=== PATIENT | male | born 1970 | race Caucasian/White ===

== ENCOUNTER 2017-03-14 13:17 | Emergency (ER) | payer OTHER ==
[2017-03-14] MEDS ORDERED: ONDANSETRON 4 MG/2 ML VIAL ONE (13:25)
[2017-03-14] MEDS ORDERED: ONDANSETRON 4 MG/2 ML VIAL IVP ONE (13:40)
--- NOTE | 2017-03-14 13:41 | CPEKG ---
Heart Rate: 64 RR Interval: 938 P-R Interval: 156 QRSD Interval: 110 QT Interval: 468 QTC Interval: 483 P Reyno: 58 QRS Reyno: 62 T Wave Reyno: 41 EKG Severity - ABNORMAL ECG - EKG Impression: SINUS RHYTHM EKG Impression: NONSPECIFIC INTRAVENTRICULAR CONDUCTION DELAY Electronically Signed By: Fletcher Horan 14-Mar-2017 15:06:46
--- NOTE | 2017-03-14 13:44 | EDPHY ---
H & P Time Seen by Provider: 03/14/17 13:35 HPI/ROS: Chief complaint. Bilateral arm numbness HPI. 46-year-old male here with bilateral arm numbness and tingling that began when he felt like he was going to pass out. He was feeling very lightheaded and stressed and nauseated. This symptoms began a couple hours ago. He had altered sensation to his arms but no weakness. He vomited 4 times and now feels better. He had no chest discomfort or trouble breathing. He had some neck and back pain are at the onset but no symptoms of this now. He has had similar symptoms previously with 2 episodes last fall. He had cardiology workup which was normal. He had a vasectomy yesterday. Took a Vicodin last night. He has increased stress and there was emotional upset and stressed around the onset of this episode today. ROS Constitutional. Generalized weakness but no fever Eyes. no problems with vision ENT. no sore throat, no nasal drainage Cardiovascular. no chest pain Respiratory. no shortness of breath, no cough Abdominal. No abdominal pain but vomiting . no problems urinating MS. Neck and upper back pain at the onset but not now Skin. no rash Lymph. no swollen glands Neuro. Lightheaded and near syncope. Bilateral arm tingling. Past Medical/Surgical History: Near syncopal episodes and anxiety/depression. Vasectomy yesterday Family history father had an [place] at about this patient's age Social History: , nonsmoker, no alcohol Physical Exam: General Appearance: Alert well-developed male moderate distress vital signs are stable Eyes: Pupils equal and round no pallor or injection. ENT, Mouth: Mucous membranes are moist. Respiratory: There are no retractions, lungs are clear to auscultation. Cardiovascular: Regular rate and rhythm. Gastrointestinal: Abdomen is soft and nontender, no masses, bowel sounds normal. Neurological: Awake and alert, sensory and motor exams grossly normal. Skin: Warm and dry, no rashes. Musculoskeletal: Neck is supple nontender. Extremities symmetrical, full range of motion. Psychiatric: Patient is oriented X 3, there is no agitation. Constitutional: Initial Vital Signs Temperature (C) 36.5 C 03/14/17 13:17 Heart Rate 68 03/14/17 13:17 Respiratory Rate 16 03/14/17 13:17 Blood Pressure 128/59 H 03/14/17 13:17 O2 Sat (%) 98 03/14/17 13:17 O2 Delivery Mode Room Air Allergies/Adverse Reactions: No Known Allergies Allergy (Verified 03/14/17 13:43) Home Medications: Medication Instructions Recorded LORazepam 03/14/17 MIRTAZAPINE 03/14/17 Medical Decision Making - Diagnostics EKG Interpretation: EKG interpreted by me shows normal sinus rhythm with normal interval and axis. Mild interventricular conduction delay with QRS D of 110. No ST elevation or depression. No arrhythmia. The rate is 64 Procedures: IV normal saline, monitor. Zofran for nausea. IV lorazepam ED Course/Re-evaluation: Re-evaluation 3:00 p.m.. Patient patient is feeling better. We reviewed labs. He has had 1 L of fluid but no urge to urinate. We agreed that we will give him and 1 more L of saline and repeat repeat labs in 1 hour. Re-evaluation at 5:35 p.m.. Patient is stable. He tells me he feels back to normal. He is offered admission but he feels well to be discharged. We will ambulate the patient prior to discharge. His repeat troponin is normal. His electrolyte abnormalities have normalized. Patient has no complaints now. The patient and family and I discussed laboratory results, treatment plan including criteria for return importance of follow-up and further evaluation. They expressed understanding and agreement 6:10 p.m.-- Patient ambulates without difficulty. Again he feels well without symptoms. Again he is offered admission but declines. Differential Diagnosis: I think this was likely stress and panic attack. I considered acute coronary syndrome, electrolyte abnormalities, cervical radiculopathy, CVA - Data Points Laboratory Results: Laboratory Results 03/14/17 16:05 03/14/17 16:05 03/14/17 03/14/17 03/14/17 16:05 16:05 13:15 WBC 14.14 10^3/uL H 10^3/uL (3.80-9.50) RBC 4.25 10^6/uL L 10^6/uL (4.40-6.38) Hgb 13.4 g/dL L g/dL (13.7-17.5) Hct 38.5 % L % (40.0-51.0) MCV 90.6 fL fL (81.5-99.8) MCH 31.5 pg pg (27.9-34.1) MCHC 34.8 g/dL g/dL (32.4-36.7) RDW 12.4 % % (11.5-15.2) Plt Count 251 10^3/uL D 10^3/uL (150-400) MPV 9.7 fL fL (8.7-11.7) Neut % (Auto) 86.6 % H % (39.3-74.2) Lymph % (Auto) 8.0 % L % (15.0-45.0) [place] % (Auto) 4.5 % % (4.5-13.0) Eos % (Auto) 0.1 % L % (0.6-7.6) Baso % (Auto) 0.1 % L % (0.3-1.7) Nucleat RBC Rel Count 0.0 % % (0.0-0.2) Absolute Neuts (auto) 12.23 10^3/uL H 10^3/uL (1.70-6.50) Absolute Lymphs (auto) 1.13 10^3/uL 10^3/uL (1.00-3.00) Absolute Monos (auto) 0.64 10^3/uL 10^3/uL (0.30-0.80) Absolute Eos (auto) 0.02 10^3/uL L 10^3/uL (0.03-0.40) Absolute Basos (auto) 0.02 10^3/uL 10^3/uL (0.02-0.10) Absolute Nucleated RBC 0.00 10^3/uL 10^3/uL (0-0.01) Immature Gran % 0.7 % % (0.0-1.1) Immature Gran # 0.10 10^3/uL 10^3/uL (0.00-0.10) Sodium 138 mEq/L mEq/L 140 mEq/L mEq/L (134-144) (134-144) Potassium 4.0 mEq/L mEq/L 3.2 mEq/L L mEq/L (3.5-5.2) (3.5-5.2) Chloride 109 mEq/L mEq/L 106 mEq/L mEq/L (97-110) (97-110) Carbon Dioxide 22 mEq/l D mEq/l 16 mEq/l L mEq/l (22-31) (22-31) Anion Gap 7 mEq/L L mEq/L 18 mEq/L H mEq/L (8-16) (8-16) BUN 14 mg/dL mg/dL 14 mg/dL mg/dL (7-23) (7-23) Creatinine 1.1 mg/dL mg/dL 1.3 mg/dL mg/dL (0.7-1.3) (0.7-1.3) Estimated GFR > 60 59 Glucose 155 mg/dL H mg/dL 132 mg/dL H mg/dL (70-100) (70-100) Calcium 8.4 mg/dL L D mg/dL 10.1 mg/dL mg/dL (8.5-10.4) (8.5-10.4) Troponin I < 0.012 ng/mL ng/mL < 0.012 ng/mL ng/mL (0-0.034) (0-0.034) 03/14/17 13:15 WBC 11.83 10^3/uL H 10^3/uL (3.80-9.50) RBC 5.25 10^6/uL 10^6/uL (4.40-6.38) Hgb 16.5 g/dL g/dL (13.7-17.5) Hct 46.2 % % (40.0-51.0) MCV 88.0 fL fL (81.5-99.8) MCH 31.4 pg pg (27.9-34.1) MCHC 35.7 g/dL g/dL (32.4-36.7) RDW 12.3 % % (11.5-15.2) Plt Count 381 10^3/uL 10^3/uL (150-400) MPV 10.0 fL fL (8.7-11.7) Neut % (Auto) 55.6 % % (39.3-74.2) Lymph % (Auto) 35.2 % % (15.0-45.0) [place] % (Auto) 7.0 % % (4.5-13.0) Eos % (Auto) 1.3 % % (0.6-7.6) Baso % (Auto) 0.5 % % (0.3-1.7) Nucleat RBC Rel Count 0.0 % % (0.0-0.2) Absolute Neuts (auto) 6.57 10^3/uL H 10^3/uL (1.70-6.50) Absolute Lymphs (auto) 4.17 10^3/uL H 10^3/uL (1.00-3.00) Absolute Monos (auto) 0.83 10^3/uL H 10^3/uL (0.30-0.80) Absolute Eos (auto) 0.15 10^3/uL 10^3/uL (0.03-0.40) Absolute Basos (auto) 0.06 10^3/uL 10^3/uL (0.02-0.10) Absolute Nucleated RBC 0.00 10^3/uL 10^3/uL (0-0.01) Immature Gran % 0.4 % % (0.0-1.1) Immature Gran # 0.05 10^3/uL 10^3/uL (0.00-0.10) Sodium Potassium Chloride Carbon Dioxide Anion Gap BUN Creatinine Estimated GFR Glucose Calcium Troponin I Medications Given: Discontinued Medications Sodium Chloride (Ns) 1,000 mls @ 0 mls/hr IV ONCE ONE; Wide Open PRN Reason: Protocol Stop: 03/14/17 13:59 Last Admin: 03/14/17 14:13 Dose: 1,000 mls Sodium Chloride (Ns) 1,000 mls @ 0 mls/hr IV ONCE ONE; Wide Open PRN Reason: Protocol Stop: 03/14/17 15:01 Last Admin: 03/14/17 15:07 Dose: 1,000 mls Sodium Chloride (Ns) 1,000 mls @ 0 mls/hr IV ONCE ONE; Wide Open PRN Reason: Protocol Stop: 03/14/17 15:01 Last Admin: 03/14/17 15:07 Dose: 1,000 mls Lorazepam (Ativan Injection) 1 mg IVP EDNOW ONE Stop: 03/14/17 13:59 Last Admin: 03/14/17 14:13 Dose: 1 mg Ondansetron HCl (Zofran) 4 mg IVP EDNOW ONE Stop: 03/14/17 13:41 Last Admin: 03/14/17 13:40 Dose: 4 mg Departure - Departure Disposition: Home, Routine, Self-Care Clinical Impression: Near syncope Condition: Good Instructions: Near Syncope (ED) Additional Instructions: Regular eating and drinking. Stay hydrated. Continue regular medications. Return for further sensation of passing out, chest discomfort, trouble breathing. I will give you the name of cardiology and regular physician to follow up in 2 days without fail. Referrals: Patient,NotPresent [Unknown] - As per Instructions Cee Chlid MD [Medical Doctor] - 2-3 days without fail Mohamud Guajardo MD [Medical Doctor] - 2-3 days without fail
[2017-03-14 13:47] VITALS: TEMP 97.7
[2017-03-14] MEDS ORDERED: NS 1,000 ML IV ONE ×3 (13:58→15:00)
[2017-03-14] MEDS ORDERED: LORazepam 2 MG/ML INJ IVP ONE (13:58)
[2017-03-14 14:03] LABS: % IMMATURE GRANULYOCYTES 0.4 % (0.0-1.1); ABSOLUTE IMMATURE GRANULOCYTES 0.05 10^3/uL (0.00-0.10); ADD DIFF? NO; ADD MORPH? NO; ADD SCAN? NO; ATYPICAL LYMPHOCYTE FLAG 0 (0-99); FRAGMENT RBC FLAG 0 (0-99); HEMATOCRIT 46.2 % (40.0-51.0); HEMOGLOBIN 16.5 g/dL (13.7-17.5); LEFT SHIFT FLG 0 (0-99); LIPEMIA HEMOLYSIS FLAG 90 (0-99); MEAN CELL HEMOGLOBIN 31.4 pg (27.9-34.1); MEAN CELL HEMOGLOBIN CONCENTR. 35.7 g/dL (32.4-36.7); PLATELET CLUMPS FLAG 0 (0-99); PLATELET COUNT 381 10^3/uL (150-400); RED BLOOD CELL COUNT 5.25 10^6/uL (4.40-6.38); RED CELL DISTRIBUTION WIDTH 12.3 % (11.5-15.2)
[2017-03-14 14:19] LABS: ANION GAP 18 mEq/L (8-16); CALCIUM 10.1 mg/dL (8.5-10.4); CARBON DIOXIDE 16 mEq/l (22-31); CHLORIDE 106 mEq/L (97-110); CREATININE 1.3 mg/dL (0.7-1.3); GLOMERULAR FILTRATION RATE 59; GLUCOSE 132 mg/dL (70-100); POTASSIUM 3.2 mEq/L (3.5-5.2); SODIUM 140 mEq/L (134-144)
[2017-03-14 14:31] LABS: TROPONIN I < 0.012 ng/mL (0-0.034)
[2017-03-14 16:32] LABS: % IMMATURE GRANULYOCYTES 0.7 % (0.0-1.1); ADD DIFF? NO; ADD MORPH? NO; ADD SCAN? NO; ATYPICAL LYMPHOCYTE FLAG 0 (0-99); FRAGMENT RBC FLAG 0 (0-99); HEMATOCRIT 38.5 % (40.0-51.0); HEMOGLOBIN 13.4 g/dL (13.7-17.5); LEFT SHIFT FLG 20 (0-99); LIPEMIA HEMOLYSIS FLAG 90 (0-99); MEAN CELL HEMOGLOBIN 31.5 pg (27.9-34.1); MEAN CELL HEMOGLOBIN CONCENTR. 34.8 g/dL (32.4-36.7); MEAN CELL VOLUME 90.6 fL (81.5-99.8); MEAN PLATELET VOLUME 9.7 fL (8.7-11.7); PLATELET CLUMPS FLAG 0 (0-99); PLATELET COUNT 251 10^3/uL (150-400); RED BLOOD CELL COUNT 4.25 10^6/uL (4.40-6.38); RED CELL DISTRIBUTION WIDTH 12.4 % (11.5-15.2)
[2017-03-14 16:39] LABS: ANION GAP 7 mEq/L (8-16); CALCIUM 8.4 mg/dL (8.5-10.4); CARBON DIOXIDE 22 mEq/l (22-31); CHLORIDE 109 mEq/L (97-110); CREATININE 1.1 mg/dL (0.7-1.3); GLOMERULAR FILTRATION RATE > 60; GLUCOSE 155 mg/dL (70-100); SODIUM 138 mEq/L (134-144)
[2017-03-14 16:51] LABS: TROPONIN I < 0.012 ng/mL (0-0.034)
[2017-03-14 18:19] VITALS: BP 114/63; PULSE 76; RESP 18; O2SAT 95
== END 2017-03-14 18:19 | disposition home or self-care (01) ==
LOC: EDUNIT#
DX: R55 Syncope and collapse (principal)
CPT/HCPCS: 96374; J2060; J2405

== ENCOUNTER 2018-01-03 12:32 | Emergency (ER) | payer OTHER ==
[2018-01-03 12:37] VITALS: BP 127/80
== END 2018-01-03 13:11 | disposition left against medical advice (07) ==
DX: Z53.21 Procedure and treatment not carried out due to patient leaving prior to being seen by health care provider (principal)